=== PATIENT | female | born 1960 | race Caucasian/White ===

== ENCOUNTER 2018-03-01 16:27 | Emergency (ER) | payer OTHER ==
[2018-03-01 16:36] VITALS: O2SAT 99
[2018-03-01] MEDS ORDERED: Sodium Chloride 0.9% 1,000 ML IV SCH (17:15)
--- NOTE | 2018-03-01 17:21 | ED PDOC ---
HPI: Abdomen History Per: Patient History/Exam Limitations: no limitations Additional Complaint(s): 57 y/o F presents to ED complaining of LLQ abdominal pain and L flank pain that began 3 days ago. Pain is described as pressure-sharp, 8-9/10 intensity, begins in L flank area radiates to LLQ abdomen, associated with mild dysuria and NOT alleviated with Tylenol. Pt currently also has R flank, that come intermittently. Pt had a UTI 1 year ago that treated with antibiotics. Pt explains having mild burning sensation with urination every summer. Pt drinks 3 small bottles of water a day. Pt works at a [employer] where there is a warm environment. Pt admits to NOT liking water. Pt reports her daughter has Hx of kidney stones. Pt denies urinary frequency, hematuria, nausea, vomiting, diarrhea, rash or peripheral edema. LMP at age 49. PMD: none NKA Meds: NONE PMHx: HTN and CVA PSHx: Cholecystectomy and 2 ectopic removals. FHx: Daughter has Hx of nephrolithiasis, father from brain cancer. Mother alive and seems healthy. SHx: Denies alcohol, tobacco or rec drugs. <Lizandro Moctezuma - Last Filed: 03/01/18 18:57> <Sowmya Mcwilliams - Last Filed: 03/02/18 10:00> Time Seen by Provider: 03/01/18 16:39 Chief Complaint (Nursing): Abdominal Pain Supervising Attending Note - Supervising Attending Note The Documented history was done by the: Physician Gasoline Locomotive Crane Operator The documented physical exam was done by the: Physician Gasoline Locomotive Crane Operator The documented procedures were done by the: Physician Gasoline Locomotive Crane Operator - Attestation: I have personally seen and examined this patient.: Yes I have fully participated in the care of the patient.: Yes - Notes: Notes:: Pt without indication of UTI on labs. Instructed to follow up with primary medical doctor or return to the ED if symptoms return. <Sowmya Mcwilliams - Last Filed: 03/02/18 10:00> Past Medical History Vital Signs: Last Vital Signs Temp 98.0 F 03/01/18 16:33 Pulse 67 03/01/18 16:33 Resp 16 03/01/18 16:33 BP 149/76 03/01/18 16:33 Pulse Ox 99 03/01/18 16:33 - Medical History PMH: CVA, HTN - Surgical History Surgical History: Cholecystectomy Other surgeries: 2x Ectopic removal - Family History Family History: States: Unknown Family Hx - Living Arrangements Living Arrangements: With Family - Social History Current smoker - smoking cessation education provided: No Ex-Smoker (has not smoked in the last 12 months): No Alcohol: None Drugs: Denies - Immunization History Hx Tetanus Toxoid Vaccination: No Hx Influenza Vaccination: No Hx Pneumococcal Vaccination: No <Lizandro Moctezuma - Last Filed: 03/01/18 18:57> Vital Signs: Last Vital Signs Temp 98.2 F 03/01/18 19:15 Pulse 55 L 03/01/18 19:15 Resp 19 03/01/18 19:15 BP 155/78 H 03/01/18 19:15 Pulse Ox 99 03/01/18 19:13 <Sowmya Mcwilliams - Last Filed: 03/02/18 10:00> - Home Medications Home Medications: Ambulatory Orders Medication Instructions Recorded Famotidine [Pepcid] 20 mg PO HS #30 tab 09/30/15 Ibuprofen [Motrin] 600 mg PO Q6 #20 tab 12/17/16 amLODIPine [Norvasc] 5 mg PO DAILY #30 tab 12/17/16 - Allergies Allergies/Adverse Reactions: Allergies Allergy/AdvReac Type Severity Reaction Status Date / Time No Known Allergies Allergy Verified 03/01/18 16:33 Review of Systems Constitutional: Negative for: Fever, Chills Eyes: Negative for: Pain ENT: Negative for: Ear Pain, Throat Pain, Throat Swelling Cardiovascular: Negative for: Chest Pain, Palpitations Respiratory: Negative for: Cough, Shortness of Breath Gastrointestinal: Positive for: Abdominal Pain. Negative for: Nausea, Vomiting, Diarrhea, Constipation, Hematochezia Musculoskeletal: Positive for: Back Pain (Lef flank pain.). Negative for: Neck Pain, Shoulder Pain Skin: Negative for: Rash Neurological: Negative for: Weakness, Numbness Psych: Negative for: Anxiety, Depression <Lizandro Moctezuma - Last Filed: 03/01/18 18:57> Physical Exam - Physical Exam Appears: Positive for: No Acute Distress Head Exam: Positive for: ATRAUMATIC, NORMAL INSPECTION Eye Exam: Positive for: Normal appearance, EOMI ENT: Positive for: Normal ENT Inspection Neck: Positive for: Normal, Painless ROM, Supple Cardiovascular/Chest: Positive for: Regular Rate, Rhythm Respiratory: Positive for: Normal Breath Sounds. Negative for: Respiratory Distress Gastrointestinal/Abdominal: Positive for: Bowel Sounds (present), Soft, Tenderness (LLQ area and suprapubic.). Negative for: Organomegaly, Distended, Guarding Back: Negative for: L CVA Tenderness, R CVA Tenderness, Vertebral Tenderness Extremity: Positive for: Normal ROM. Negative for: Tenderness, Calf Tenderness Neurologic/Psych: Positive for: Alert, Oriented <Lizandro Moctezuma - Last Filed: 03/01/18 18:57> - Laboratory Results Result Diagrams: 03/01/18 17:59 03/01/18 17:59 - ECG O2 Sat by Pulse Oximetry: 99 <Lizandro Moctezuma - Last Filed: 03/01/18 18:57> - Laboratory Results Result Diagrams: 03/01/18 17:59 03/01/18 17:59 <Sowmya Mcwilliams - Last Filed: 03/02/18 10:00> Medical Decision Making Medical Decision Making: At 17:05, Pt was evaluated and examined by bedside with Dr Manning. Due to urinary complaints, UTI and nephrolithiasis need to be ruled out. --CBC, BMP, Urine dipstick, urine culture. --IV fluids, --PO Pyridium and IV Toradol for pain management. At 18:35, CBC and BMP were reviewed and negative. Urine dipstick was unremarkable. Results discussed with pt. No signs of UTI or nephrolithiasis. Pt reported remarkable improvement after IV fluids and pain medication. --Pt stable, tolerating PO, will be discharged home. --Pt was instructed to increase water intake, high-fiber diet recommended and to take OTC Ibuprofen for pain management. --Pt was extensively counseled on the need for BP management by a PCP. Pt was given information of [facility] at [place], instructed to set up an appointment within 1 week. <Lizandro Moctezuma - Last Filed: 03/01/18 18:57> Disposition - Patient ED Disposition Is Patient to be Admitted: No Counseled Patient/Family Regarding: Studies Performed, Need For Followup - Disposition Disposition: Routine/Home Disposition Time: 19:00 <Lizandro Moctezuma - Last Filed: 10/06/18 18:57> <Sowmya Mcwilliams - Last Filed: 03/02/18 10:00> - Clinical Impression Clinical Impression: Abdominal pain - Disposition Referrals: [facility] [Outside] Condition: IMPROVED Additional Instructions: -Por favor, ingerir mas agua, al menos 10 vasos de agua al vania, aumentar verdura s yfrutas en la dieta. -Conseguir un medico primario, para el manejo de presion mora. -Hacer aldair en la clinica "[facility]" al del[place] [phone]. Preguntar por [facility] care. Instructions: Acute Abdomen (Belly Pain), Adult (DC) Forms: [facility] [employer] [facility] (Serbian) Print Language: WOLOF
[2018-03-01 18:21] LABS: BASO # 0.1 K/uL (0.0-0.2); BASO % 0.6 % (0.0-2.0); EOS # 0.5 K/uL (0.0-0.7); EOS % 5.3 % (0.0-4.0); HEMOGLOBIN 13.7 g/dL (12.0-16.0); LYMPH # 3.2 K/uL (1.0-4.3); LYMPH % 33.5 % (20.0-40.0); MEAN CELL VOLUME 91.6 fl (81.0-99.0); MEAN CORPUSCULAR HEMOGLOBIN 30.8 pg (27.0-31.0); MEAN CORPUSCULAR HGB CONC 33.6 g/dL (33.0-37.0); MEAN PLATELET VOLUME 9.1 fl (7.2-11.7); MONO # 0.7 K/uL (0.0-0.8); MONO % 7.8 % (0.0-10.0); NEUT % 52.8 % (50.0-75.0); NRBC % 0.1 % (0.0-0.0); RBC 4.45 Mil/uL (3.80-5.20); RED CELL DISTRIBUTION WIDTH 13.4 % (11.5-14.5); WHITE BLOOD COUNT 9.5 K/uL (4.8-10.8)
[2018-03-01 18:23] LABS: BLOOD UREA NITROGEN 13 mg/dl (7-17); CALCIUM 9.4 mg/dL (8.4-10.2); GFR NON-AFRICAN AMERICAN > 60
[2018-03-01 19:17] VITALS: BP 155/78; PULSE 55; RESP 19; TEMP 98.2
== END 2018-03-01 19:17 | disposition home or self-care (01) ==
LOC: H.ER 16:27
DX: R10.30 Lower abdominal pain, unspecified (principal); I10 Essential (primary) hypertension; Z86.73 Personal history of transient ischemic attack (TIA), and cerebral infarction without residual deficits
CPT/HCPCS: 80048; 85025; 87086; 87181; 96374; 99283; J1885; J7030

== ENCOUNTER 2018-03-14 15:40 | Emergency (ER) | payer OTHER ==
[2018-03-14 15:55] VITALS: RESP 18; TEMP 98.6
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
[2018-03-14 19:10] VITALS: BP 167/82; PULSE 63
[2018-03-14 19:12] VITALS: O2SAT 99
== END 2018-03-14 19:24 | disposition home or self-care (01) ==
LOC: H.ER 15:40
DX: G44.209 Tension-type headache, unspecified, not intractable (principal); M54.9 Dorsalgia, unspecified; M54.2 Cervicalgia; V43.62XA Car passenger injured in collision with other type car in traffic accident, initial encounter; Y92.410 Unspecified street and highway as the place of occurrence of the external cause; I10 Essential (primary) hypertension; Z86.73 Personal history of transient ischemic attack (TIA), and cerebral infarction without residual deficits
CPT/HCPCS: 96372; 99285; J1885

== ENCOUNTER 2018-06-03 17:49 | Emergency (ER) | payer SELFPAY ==
[2018-06-03 18:14] VITALS: TEMP 98.1; O2SAT 98
[2018-06-03] MEDS ORDERED: Sodium Chloride 0.9% 1,000 ML IV STA (18:49)
--- NOTE | 2018-06-03 19:00 | ED PDOC ---
HPI: Headache Time Seen by Provider: 06/03/18 18:32 Chief Complaint (Nursing): Headache Chief Complaint (Provider): Headache History Per: Patient History/Exam Limitations: no limitations Onset/Duration Of Symptoms: Hrs Current Symptoms Are (Timing): Still Present Quality: Pressure (throbbing) Additional Complaint(s): 57 y/o female with a PMHx of TIA and HTN presents to the ED for evaluation of a constant headache, onset last night. Patient states headache is diffuse and throbbing. Patient reports headache is associated with photophobia and nausea. Patient additionally reports of similar episodes in the past for many years. However, patient states she has not been diagnosed with anything. Patient reports of taking Ibuprofen with no relief. Patient states pain is stronger thus prompting today's visit. Otherwise, patient denies vomiting, fever, chest pain and dizziness. Patient states headache is not of sudden onset, thunderclap and i s not the worst headache of her life. PMD: none provided Past Medical History Reviewed: Historical Data, Nursing Documentation, Vital Signs Vital Signs: Last Vital Signs Temp 98.1 F 06/03/18 18:13 Pulse 58 L 06/03/18 18:13 Resp 16 06/03/18 18:13 BP 163/78 H 06/03/18 18:13 Pulse Ox 98 06/03/18 18:13 - Medical History PMH: CVA, HTN, TIA - Surgical History Surgical History: Cholecystectomy Other surgeries: 2 ectopic surgeries - Family History Family History: States: Unknown Family Hx - Immunization History Hx Tetanus Toxoid Vaccination: No Hx Influenza Vaccination: No Hx Pneumococcal Vaccination: No - Home Medications Home Medications: Ambulatory Orders Medication Instructions Recorded Famotidine [Pepcid] 20 mg PO HS #30 tab 09/30/15 Ibuprofen [Motrin] 600 mg PO Q6 #20 tab 12/17/16 amLODIPine [Norvasc] 5 mg PO DAILY #30 tab 12/17/16 Cyclobenzaprine [Cyclobenzaprine 10 mg PO Q8 PRN #12 tab 03/14/18 HCl] RX: Naproxen 500 mg PO BID PRN #20 tab 03/14/18 Nitrofurantoin Macrocrystals 100 mg PO BID #14 cap 06/03/18 [Macrobid] - Allergies Allergies/Adverse Reactions: Allergies Allergy/AdvReac Type Severity Reaction Status Date / Time No Known Allergies Allergy Verified 03/14/18 15:53 Review of Systems ROS Statement: Except As Marked, All Systems Reviewed And Found Negative Constitutional: Negative for: Fever Cardiovascular: Negative for: Chest Pain Gastrointestinal: Positive for: Nausea. Negative for: Vomiting Neurological: Positive for: Headache. Negative for: Dizziness Physical Exam - Reviewed Nursing Documentation Reviewed: Yes Vital Signs Reviewed: Yes - Physical Exam Appears: Positive for: No Acute Distress Head Exam: Positive for: ATRAUMATIC, NORMOCEPHALIC Skin: Positive for: Normal Color, Warm, Dry Eye Exam: Positive for: Normal appearance, EOMI, PERRL Neck: Positive for: Normal, Painless ROM Cardiovascular/Chest: Positive for: Regular Rate, Rhythm. Negative for: Murmur Respiratory: Positive for: Normal Breath Sounds. Negative for: Respiratory Distress Gastrointestinal/Abdominal: Positive for: Normal Exam, Soft. Negative for: Tenderness Back: Positive for: Normal Inspection. Negative for: L CVA Tenderness, R CVA Tenderness, Vertebral Tenderness Extremity: Positive for: Normal ROM. Negative for: Pedal Edema, Deformity Neurologic/Psych: Positive for: Alert, Oriented (x3). Negative for: Motor/Sensory Deficits - Laboratory Results Result Diagrams: 06/03/18 19:14 06/03/18 19:14 - ECG O2 Sat by Pulse Oximetry: 98 (RA) Pulse Ox Interpretation: Normal - Progress Re-evaluation Time: 21:00 Condition: Re-examined, Improved Medical Decision Making Medical Decision Making: Time: 1848 Impression: Headache Differentials include but not limited to migraine tension headache, brain mass, intercranial bleeding unlikely SAH Plan: -- CT Head w/o Contrast -- BMP -- ED Urine Dipstick -- ED Urine -- CBC with differentials -- Sodium Chloride IV 1000 mls/hr -- Reglan 10 mg IVP -- Toradol 30 mg IVP -- IV Insertion Time: 1913 CT HEAD RESULTS COMMENTS: Prior studies are not available for comparison. The study shows normal configuration of sella turcica. There are no intra or extra-axial collections. There is no mass effect or midline shift. There is no evidence of hematoma formation. No hydrocephalus is present. No abnormal calcifications are noted. No significant abnormalities are seen either in the posterior fossa or supratentorial compartment. There is mucosal thickening and partial opacification involving bilateral ethmoid air cells consistent with chronic sinusitis. IMPRESSION: Sinusitis as above. No evidence of acute intracranial pathology. Thank you for your kind referral of this patient. Electronically signed on Jun 03, 2018 7:14:40 PM EST by: Pepe Mar M.D., DENISA Certified By [facility] Fellowship Trained MRI and CT Specialist Scribe Attestation: Documented by Joshua Jones, acting as a scribe for Sera Randolph MD. Provider Scribe Attestation: All medical record entries made by the Scribe were at my direction and personally dictated by me. I have reviewed the chart and agree that the record accurately reflects my personal performance of the history, physical exam, medical decision making, and the department course for this patient. I have also personally directed, reviewed, and agree with the discharge instructions and disposition. Disposition - Clinical Impression Clinical Impression: Sinusitis chronic, ethmoidal, Acute headache, UTI (urinary tract infection) - Patient ED Disposition Is Patient to be Admitted: No Doctor Will See Patient In The: Office Counseled Patient/Family Regarding: Studies Performed, Diagnosis, Need For Followup - Disposition Referrals: [facility] [Outside] Disposition: Routine/Home Disposition Time: 21:10 Condition: GOOD Additional Instructions: KAMI CÁRDENAS, thank you for letting us take care of you today. Your provider was Sera Randolph MD and you were treated for MIGRAINE. The emergency me dical care you received today was directed at your acute symptoms. If you were prescribed any medication, please fill it and take as directed. It may take several days for your symptoms to resolve. Return to the Emergency Department if your symptoms worsen, do not improve, or if you have any other problems. Please contact your doctor or call one of the physicians/clinics you have been referred to that are listed on the Patient Visit Information form that is included in your discharge packet. Bring any paperwork you were given at discharge with you along with any medications you are taking to your follow up visit. Our treatment cannot replace ongoing medical care by a primary care provider outside of the emergency department. Thank you for allowing the [facility] team to be part of your care today. If you had an X-Ray or CT scan: A Radiologist will review the ED reading if any change in treatment is needed we will contact you. If you had a blood, urine, or wound culture: It will take several days for the results, if any change in treatment is needed we will contact you. If you had an STI test: It will take 48 hours for the results. Please call after 1 week if you have not heard back. Prescriptions: Nitrofurantoin Macrocrystals [Macrobid] 100 mg PO BID #14 cap Instructions: Urinary Tract Infections in Adults, Sinusitis, Adult (DC), Acute Headache (ED) Print Language: SWEDISH
[2018-06-03 19:19] LABS: BASO # 0.1 K/uL (0.0-0.2); BASO % 0.7 % (0.0-2.0); EOS # 0.2 K/uL (0.0-0.7); EOS % 2.9 % (0.0-4.0); HEMOGLOBIN 12.3 g/dL (12.0-16.0); LYMPH # 3.3 K/uL (1.0-4.3); LYMPH % 38.7 % (20.0-40.0); MEAN CORPUSCULAR HEMOGLOBIN 30.1 pg (27.0-31.0); MEAN CORPUSCULAR HGB CONC 33.1 g/dL (33.0-37.0); MONO # 0.8 K/uL (0.0-0.8); MONO % 9.1 % (0.0-10.0); NEUT # 4.2 K/uL (1.8-7.0); NEUT % 48.6 % (50.0-75.0); RBC 4.1 Mil/uL (3.80-5.20); RED CELL DISTRIBUTION WIDTH 13.3 % (11.5-14.5); WHITE BLOOD COUNT 8.6 K/uL (4.8-10.8)
[2018-06-03 19:29] LABS: BLOOD UREA NITROGEN 17 mg/dl (7-17); CALCIUM 9.2 mg/dL (8.4-10.2); GFR NON-AFRICAN AMERICAN > 60
[2018-06-03 19:50] LABS: SQUAMOUS EPITHIAL 14 /hpf (0-5); URINE BACTERIA OCC (<OCC); URINE BILIRUBIN NEGATIVE (NEGATIVE); URINE BLOOD NEGATIVE (NEGATIVE); URINE CLARITY CLOUDY (Clear); URINE COLOR YELLOW (YELLOW); URINE GLUCOSE (UA) NEG (NEGATIVE); URINE LEUKOCYTE ESTERASE MOD Leu/uL (Negative); URINE PROTEIN NEGATIVE (NEGATIVE); URINE UROBILINOGEN 0.2-1.0 mg/dL (0.2-1.0)
[2018-06-03 21:34] VITALS: BP 137/77; PULSE 71; RESP 20
--- NOTE | 2018-06-04 09:50 | CT ---
Date of service: 06/03/2018 PROCEDURE: CT HEAD WITHOUT CONTRAST. HISTORY: headache COMPARISON: None available. TECHNIQUE: Axial computed tomography images were obtained through the head/brain without intravenous contrast. Radiation dose: Total exam DLP = 808.14 mGy-cm. This CT exam was performed using one or more of the following dose reduction techniques: Automated exposure control, adjustment of the mA and/or kV according to patient size, and/or use of iterative reconstruction technique. FINDINGS: HEMORRHAGE: No intracranial hemorrhage. BRAIN: No mass effect or edema. No atrophy or chronic microvascular ischemic changes. Incidentally noted are fairly low density punctate type calcifications in the basal ganglionic regions. These are not fully to be clinically significant. VENTRICLES: Unremarkable. No hydrocephalus. CALVARIUM: Unremarkable. PARANASAL SINUSES: Minimal ethmoidal sinus mucosal inflammatory type changes suggested. MASTOID AIR CELLS: Unremarkable as visualized. No inflammatory changes. OTHER FINDINGS: None. IMPRESSION: No intracranial hemorrhage or mass effect. Minimal inflammatory changes ethmoidal air cells. Other findings as above.
== END 2018-06-03 21:59 | disposition home or self-care (01) ==
LOC: H.ER 17:49
DX: R51 Headache (principal); J32.9 Chronic sinusitis, unspecified; N39.0 Urinary tract infection, site not specified; I10 Essential (primary) hypertension; Z86.73 Personal history of transient ischemic attack (TIA), and cerebral infarction without residual deficits; J01.20 Acute ethmoidal sinusitis, unspecified
CPT/HCPCS: 70450; 80048; 81003; 85025; 87086; 87181; 96361; 96374; 96375; 99285; J1885; J2765; J7030